=== PATIENT | female | born 1985 ===

== ENCOUNTER → 2022-02-27 09:03 | Outpatient (CLI) | payer BC, SELFPAY ==
[2022-02-27 11:29] LABS: Urine N gonorrhoeae NOT DETECTED
[2022-02-27 11:35] LABS: Urine Chlamydia NOT DETECTED
== END ==
PROVIDERS: Visit Provider Nurse Practitioner Family
DX: R30.0 Dysuria (principal); N89.8 Other specified noninflammatory disorders of vagina
CPT/HCPCS: 87077; 87086; 87186; 87210; 87491; 87591